=== PATIENT | male | born 1975 | race American Indian/Alaskan Native ===

== ENCOUNTER 2016-09-19 23:40 | Emergency (ER) | payer OTHER ==
[2016-09-20] MEDS ORDERED: MOTRIN PO ONE (04:39)
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
[2016-09-20 06:12] VITALS: BP 132/87
== END 2016-09-20 06:40 | disposition home or self-care (01) ==
LOC: ED 23:40
DX: S46.819A Strain of other muscles, fascia and tendons at shoulder and upper arm level, unspecified arm, initial encounter (principal); M54.5 Low back pain; V49.49XA Driver injured in collision with other motor vehicles in traffic accident, initial encounter; Y93.9 Activity, unspecified; Y92.9 Unspecified place or not applicable; Y99.9 Unspecified external cause status
CPT/HCPCS: 72100; 72125; 99284